=== PATIENT | female | born 1955 | race African-American/Black ===

== ENCOUNTER 2025-07-23 18:35 | Inpatient (IN) | payer MEDICARE ==
[~2025-07-23] VITALS: Ht 170.2 cm; Wt 79.5 kg
[2025-07-23 20:10] LABS: COVID AG,FIA SOURCE NASAL SWAB
[2025-07-23 20:36] LABS: SARS-COV2 (COVID) ANTIGEN,FIA Negative (Negative)
[2025-07-24 03:00] LABS: PLATELET COUNT (AUTO) 222 K/uL (150-450); RED BLOOD CELL COUNT(AUTO) 4.52 MIL/uL (4.00-5.20); RED CELL DISTRIBUTION WIDTH 15.3 % (11.5-14.5); WHITE BLOOD COUNT (AUTO) 5.8 K/uL (4.5-11.0)
[2025-07-24] MEDS ORDERED: MORPHINE SULFATE 2 MG/ML SYRINGE IVP ONE (03:00)
[2025-07-24 03:09] LABS: CALCIUM, TOTAL 8.8 mg/dL (8.8-10.5); CREATININE 0.48 mg/dL (0.60-1.30); GLOMERULAR FILTR. RATE CALC > 60 mL/min (>60); GLUCOSE,RANDOM 143 mg/dL (70-110); SODIUM SERUM 137 mmol/L (136-145); UREA NITROGEN, BLOOD 9 mg/dL (7-18)
[2025-07-24 03:14] LABS: ASPARTATE AMINOTRANSFERASE 23.0 U/L (15-37); TOTAL PROTEIN, SERUM 7.6 g/dL (6.4-8.2)
[2025-07-24] MEDS: MORPHINE SULFATE 4 MG/ML SYRINGE IVP ONE (03:15)
[2025-07-24] MEDS: SODIUM CHLORIDE 0.9% 1,000 ML IV ONE (03:15)
[2025-07-24] MEDS: ONDANSETRON HCL 4 MG/2 ML VIAL IVP ONE (03:15)
[2025-07-24 03:18] LABS: LACTIC ACID 1.1 mmol/L (0.4-2.0)
[2025-07-24] MEDS: LEVOFLOXACIN 500 MG/D5% WATER 100 ML IV ONE (05:15)
[2025-07-24 05:31] LABS: APPEARANCE,URINE CLEAR (CLEAR); GLUCOSE, URINE (UA) TRACE mg/dL (NEGATIVE); LEUKOCYTE ESTERASE ,URINE NEGATIVE (NEGATIVE); NITRATE,URINE NEGATIVE (NEGATIVE); OCCULT BLOOD,URINE NEGATIVE (NEGATIVE); PH,URINE DRUG SCREEN 6.5 (5.0-8.0); SPECIFIC GRAVITIY, URINE 1.010 (1.003-1.030)
[2025-07-24 05:36] LABS: ALCOHOL, URINE DRUG SCREEN NEGATIVE (NEGATIVE); AMPHET/METH SCREEN,URINE NEGATIVE (NEGATIVE); BARBITURATE SCREEN, URINE NEGATIVE (NEGATIVE); CANNABINOID SCREEN,URINE POSITIVE (NEGATIVE); COCAINE SCREEN,URINE NEGATIVE (NEGATIVE); METHADONE SCREEN, URINE NEGATIVE (NEGATIVE)
[2025-07-24] MEDS: *CLINICAL-LEVOFLOXACIN IVPB DOSING CLINICAL ONE (08:26)
[2025-07-24] MEDS: RINGERS SOLUTION,LACTATED 1,000 ML IV ONE (08:30)
[2025-07-24] MEDS ORDERED: POTASSIUM CHL 10 MEQ/WATER 50 ML IV PRN (08:30)
[2025-07-24 09:47] VITALS: BP 154/100; PULSE 86; RESP 19; TEMP 97.8; O2SAT 99
[2025-07-24] MEDS: ONDANSETRON HCL 4 MG/2 ML VIAL IVP PRN (11:11)
[2025-07-24] MEDS: POTASSIUM CHLORIDE 20 MEQ ER TABLET PO PRN (11:11)
[2025-07-24] MEDS: ACETAMINOPHEN 325 MG TABLET PO PRN (14:04)
[2025-07-24] MEDS: MORPHINE SULFATE 4 MG/ML SYRINGE IVP PRN (16:08)
[2025-07-24] MEDS: LORazepam 2 MG/ML VIAL IVP ONE (16:08)
[2025-07-24] MEDS ORDERED: LEVE-71 PO (16:22)
[2025-07-24 16:34] VITALS: BP 146/117; PULSE 86; RESP 20; TEMP 98.3; O2SAT 97
[2025-07-24] MEDS ORDERED: IOHEXOL 300 MG/ML 100 ML VIAL ONE (17:13)
[2025-07-24] MEDS ORDERED: SODIUM CHLORIDE 0.9% 100 ML ONE (17:13)
[2025-07-24] MEDS ORDERED: 0.9% SODIUM CHLORIDE 10 ML SYRINGE IVP ONE (17:13)
[2025-07-24 19:34] VITALS: BP 150/97; PULSE 84; RESP 20; TEMP 97.3; O2SAT 96
[2025-07-24] MEDS: DOCUSATE SODIUM 100 MG CAPSULE PO SCH (20:20)
[2025-07-25 00:10] VITALS: BP 133/105; PULSE 86; RESP 20; TEMP 98.1; O2SAT 97
[2025-07-25 04:07] LABS: HEPATITIS C AB (EIA) Non Reactive (Non Reactive)
[2025-07-25 04:45] VITALS: BP 139/101; PULSE 99; RESP 20; TEMP 97.7; O2SAT 96
[2025-07-25 07:00] LABS: PLATELET COUNT (AUTO) 207 K/uL (150-450); RED BLOOD CELL COUNT(AUTO) 4.32 MIL/uL (4.00-5.20); RED CELL DISTRIBUTION WIDTH 15.4 % (11.5-14.5); WHITE BLOOD COUNT (AUTO) 5.4 K/uL (4.5-11.0)
[2025-07-25 07:16] LABS: CALCIUM, TOTAL 8.6 mg/dL (8.8-10.5); CREATININE 0.84 mg/dL (0.60-1.30); GLOMERULAR FILTR. RATE CALC > 60 mL/min (>60); GLUCOSE,RANDOM 101 mg/dL (70-110); SODIUM SERUM 139 mmol/L (136-145); UREA NITROGEN, BLOOD 9 mg/dL (7-18)
[2025-07-25 07:17] VITALS: BP 142/91; PULSE 106; RESP 19; TEMP 98; O2SAT 97
[2025-07-25] MEDS: LEVOFLOXACIN 750 MG/D5% WATER 150 ML IV SCH (09:18)
[2025-07-25] MEDS ORDERED: SODIUM CHLORIDE 0.9% 250 ML IV ONE (09:27)
[2025-07-25] MEDS ORDERED: MEBROFENIN TC99M/MCL ISOTOPE 1 EA INJ INJ ONE (11:20)
[2025-07-25 16:00] VITALS: BP 123/95; PULSE 97; RESP 20; TEMP 97.9; O2SAT 100
[2025-07-25] MEDS: HEPARIN SODIUM,PORCINE 5,000 UNITS/ML VIAL SQ SCH (17:20)
[2025-07-25 20:00] VITALS: BP 145/98; PULSE 87; RESP 18; TEMP 98.2; O2SAT 97
[2025-07-26 04:00] VITALS: BP 127/91; PULSE 94; RESP 20; TEMP 98.1; O2SAT 97
[2025-07-26 06:43] LABS: PLATELET COUNT (AUTO) 208 K/uL (150-450); RED BLOOD CELL COUNT(AUTO) 4.51 MIL/uL (4.00-5.20); RED CELL DISTRIBUTION WIDTH 16.2 % (11.5-14.5); WHITE BLOOD COUNT (AUTO) 6.0 K/uL (4.5-11.0)
[2025-07-26 08:37] LABS: CALCIUM, TOTAL 8.9 mg/dL (8.8-10.5); CREATININE 0.54 mg/dL (0.60-1.30); GLOMERULAR FILTR. RATE CALC > 60 mL/min (>60); GLUCOSE,RANDOM 105 mg/dL (70-110); SODIUM SERUM 145 mmol/L (136-145); UREA NITROGEN, BLOOD 10 mg/dL (7-18)
[2025-07-26 09:54] VITALS: BP 142/122; PULSE 95; RESP 18; TEMP 97.9; O2SAT 95
[2025-07-26] MEDS ORDERED: BUSP5TAB20 PO (10:16)
[2025-07-26] MEDS ORDERED: DOCU-385 PO (10:16)
[2025-07-26] MEDS ORDERED: LACT10SO85 PO (10:23)
[2025-07-26] MEDS: MINERAL OIL 133 ML ENEMA PR ONE (11:37)
== END 2025-07-26 13:10 | disposition home or self-care (01) | DRG 392 ==
LOC: EMS 18:35 → EDH 07-24 08:19 → 6S 07-24 09:05
PROVIDERS: ADMIT Internal Medicine; ATTEND Internal Medicine
PROC: 05H933Z Insertion of Infusion Device into Right Brachial Vein, Percutaneous Approach (ICD-10-PCS; principal; 2025-07-24)
DX: K59.00 Constipation, unspecified (principal); F31.4 Bipolar disorder, current episode depressed, severe, without psychotic features; E87.6 Hypokalemia; F41.9 Anxiety disorder, unspecified; Z20.822 Contact with and (suspected) exposure to COVID-19; G40.909 Epilepsy, unspecified, not intractable, without status epilepticus; Z79.899 Other long term (current) drug therapy; Z88.0 Allergy status to penicillin; Z88.5 Allergy status to narcotic agent
CPT/HCPCS: 36569; 51702; 74018; 74177; 76705; 76937; 78226; 80048; 80076; 80307; 81003; 83605; 83735; 85025; 86803; 87040; 87340; 93005; 97116; 97162; 99285; A9537; J1630; J1644; J1956; J2060; J2270; J2405; J7030; J7050; J7120; Q9967; 36415-L1; 36415-TC